=== PATIENT | female | born 1935 | race Caucasian/White ===

== ENCOUNTER 2017-02-05 21:27 | Emergency (ER) | payer OTHER, MEDICARE ==
[2017-02-05] MEDS ORDERED: CRESTOR20 M2 PO (21:33)
[2017-02-05] MEDS ORDERED: ASPIRIN EC81 M1 PO (21:33)
[2017-02-05] MEDS ORDERED: METOPROLOL SUCC25 M1 PO (21:33)
[2017-02-05] MEDS ORDERED: LIPO-FLAVONOID1 EACH PO (21:34)
--- NOTE | 2017-02-05 23:05 | ED HEAD/FACIAL INJ COMPLAINT ---
History of Present Illness General Chief Complaint: Laceration Procedure Stated Complaint: LAC TO LEFT EYEBROW Source: patient Exam Limitations: no limitations Vital Signs & Intake/Output Vital Signs & Intake/Output Vital Signs Date Time Temp Pulse Resp B/P Pulse O2 O2 Flow FiO2 Ox Delivery Rate 02/05 2308 97.1 67 18 153/70 99 Room Air 02/05 2215 165/72 02/05 2213 Room Air 02/05 2134 97.0 78 22 99 Room Air Allergies Coded Allergies: MDX - Penicillin (PENICILLIN) (UNKNOWN 03/09/12) Reconcile Medications Aspirin (Ecotrin*) 81 MG TABLET.DR 1 TAB PO DAILY HEART (Reported) Bioflav,Lemon/Vit Bcomp,C (Lipo-Flavonoid Plus Caplet) 200 MG-100 MG TABLET 1 TAB PO BID VIT (Reported) Metoprolol Succinate 25 MG TAB 1 TAB PO DAILY HTN (Reported) Rosuvastatin Calcium (Crestor) 20 MG TABLET 1 TAB PO DAILY CHOL (Reported) Triage Note: PER PT MAILING A LETTER AND DROPPED IT BEND OVER TO PICK IT UP AND HIT MAILBOX SUSTAINED 1/2 LAC TO L EYEBROW NO LOC TAKES 81 MG ASA DAILY UNSURE OF LAST TETANUS Triage Nurses Notes Reviewed? yes Onset: Abrupt Severity: mild Location: frontal Method of Injury: direct blow Loss of Consciousness: no loss of consciousness HPI: 81-year-old female comes into emergency room for further evaluation after laceration above her left eye. Patient reports that she was bending over by her mailbox and hit it on the mailbox. Denies any loss of consciousness. Denies any headache. Denies any vomiting. Denies any anticoagulants. Tetanus shot unknown. Denies injuries anywhere else. Denies any other associated symptoms. Denies any pain to her eye or trauma to her eye. (LUCY ERICKSON) Past History Travel History Traveled to [place] past 21 day No Medical History Any Pertinent Medical History? see below for history Neurological: NONE EENT: NONE Cardiovascular: HTN,CHOL Gastrointestinal: NONE Hepatic: NONE Renal: NONE Musculoskeletal: NONE Psychiatric: NONE Endocrine: NONE Influenza Vaccine: 09/02/12 Surgical History Surgical History: non-contributory Psychosocial History What is your primary language Greek Tobacco Use: Never used Family History Hx Contributory? No (LUCY ERICKSON) Review of Systems Review of Systems Constitutional: Reports: no symptoms. EENTM: Reports: no symptoms. Respiratory: Reports: no symptoms. Cardiovascular: Reports: no symptoms. GI: Reports: no symptoms. Genitourinary: Reports: no symptoms. Musculoskeletal: Reports: no symptoms. Skin: Reports: see HPI. Neurological/Psychological: Reports: no symptoms. Hematologic/Endocrine: Reports: see HPI. Immunologic/Allergic: Reports: no symptoms. All Other Systems: Reviewed and Negative (LUCY ERICKSON) Physical Exam Physical Exam General Appearance: well developed/nourished Head: 1 cm laceration Eyes: Bilateral: normal appearance, EOMI. Ears, Nose, Throat: normal ENT inspection, hearing grossly normal Neck: normal inspection Respiratory: no respiratory distress Cardiovascular: regular rate/rhythm Back: normal inspection Extremities: normal inspection, normal range of motion, no edema Psychiatric: awake, alert, oriented x 3 Cranial Nerves: normal hearing, normal speech, PERRL Coordination/Gait: normal gait Motor/Sensory: no motor/sensory deficits Skin: intact, normal color, warm/dry Lymphatic: no anterior cervical harry Diagram Head: 1) 1 cm laceration (LUCY ERICKSON) Progress Differential Diagnosis: c-spine injury, facial fracture, globe injury, ICH, orbit fracture, skull fracture Plan of Care: No need for CT scan at this time. pt clinically looks well. No anticoagulants. (LUCY ERICKSON) Departure Departure Disposition: HOME OR SELF CARE Condition: Stable Clinical Impression Primary Impression: Facial laceration Secondary Impressions: Head injury Referrals: CAMILLA WRIGHT,TORRES Carrington (PCP/Family) Additional Instructions: Return if any severe headache or vomiting. That Steri-Strips fall off on their own. Return if any other concerns worsening symptoms. Please go over all results of today's visit with your primary care doctor. Contact your primary care doctor to let them know you were here in the emergency room. There may be nonspecific findings which may not be related to your visit today here in the emergency room but may require further evaluation and chronic monitoring by your primary care doctor. If you had a laceration today the chance of foreign body always remains. You should follow-up with your primary care doctor for recheck in 3-5 days for a wound check. If you had an x-ray done there is a chance that a fracture could have been missed on initial read and you should follow-up with your primary care doctor for repeat x-rays if symptoms persist. If your blood pressure was elevated here in the emergency room please have rechecked by her primary care doctor within the next 48 hours by your primary care doctor. If you were prescribed a narcotic here in the emergency room or any type of controlled substances you're not allowed to drive while taking this medication or operate any type of heavy machinery. Narcotics can make you feel lightheaded dizziness nausea and can cause constipation. You may need to meat pickler a stool softener. Thank you for choosing [facility] emergency room. Please return to the emergency room immediately if you have any other concerns worsening of symptoms. Departure Forms: Customer Survey General Discharge Information (LUCY ERICKSON) PA/RN BEHAVIORAL HEALTH Co-Sign Statement Statement: ED Attending supervision documentation- x I saw and evaluated the patient. I have also reviewed all the pertinent lab results and diagnostic results. I agree with the findings and the plan of care as documented in the PA's/RN BEHAVIORAL HEALTH's documentation. [] I have reviewed the ED Record and agree with the PA's/RN BEHAVIORAL HEALTH's documentation. [] Additions or exceptions (if any) to the PAs/RN BEHAVIORAL HEALTH's note and plan are summarized below: [] (MIESHA WRIGHT,ARIS) Procedures Laceration/Wound Repair Progress: 1 cm laceration above left eyebrow, irrigated with peroxide, Dermabond use, Steri-Strips placed, patient tolerated procedure, (LUCY ERICKSON)
[2017-02-05 23:08] VITALS: BP 153/70
== END 2017-02-05 23:28 ==
LOC: ERH 21:27
DX: S01.112A Laceration without foreign body of left eyelid and periocular area, initial encounter (principal); W22.8XXA Striking against or struck by other objects, initial encounter; Y92.9 Unspecified place or not applicable; Y93.9 Activity, unspecified